=== PATIENT | male | born 1960 | race Caucasian/White ===

== ENCOUNTER 2020-08-30 23:25 | Emergency (ER) | payer OTHER ==
--- NOTE | 2020-08-31 07:33 | CT ---
PRELIMINARY REPORT/[facility]/EMERGENCY AFTER HOURS PROCEDURE: EXAM: CT Lumbar Spine Without Intravenous Contrast. CLINICAL HISTORY: PT STATES THIS AFTERNOON AROUND 1530 HE SLIPPED AND FELL. PT C/O LOW BACK PAIN AND LEFT SIDED HIP AND RIB PAIN. PT TAKES ASA AND PRASUGREL, NO OTHER THINNERS. NO LOC, NO NECK PAIN TECHNIQUE: Axial computed tomography images of the lumbar spine without intravenous contrast. Sagitta l and coronal reformations performed. COMPARISON: None provided. FINDINGS: BONES: No acute fracture or focal osseous lesion. There are bilateral pars defects at the L5 vertebr al level. Bony alignment is anatomic. DISCS/DEGENERATIVE CHANGES: No significant disc or facet degeneration. No significant central canal o r neural foraminal stenosis. SOFT TISSUES: The paraspinal soft tissues are unremarkable. IMPRESSION: No acute lumbar spine abnormality. ELECTRONICALLY SIGNED BY: Shira Pineda DO Aug 31, 2020 12:46:42 AM VIOLIN TUTOR FINAL REPORT LUMBAR SPINE CT WITHOUT CONTRAST: HISTORY: Slip and fall. Pain. COMPARISON: None. FINDINGS: No posttraumatic changes in the paraspinal muscles or visualized solid organs. Nonaneurysmal aorta. 5 lumbar-type vertebrae. Vertebral body heights are maintained. No fracture. 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 No associated spondylolysis. Minimal vacuum disc phenomenon at T12-L1. Limited evaluation the contents of the central spinal canal and neural foramina due to technique. L4-L5: Broad-based disc bulge. Mild central canal stenosis and mild bilateral neural foraminal narrow ing. L5-S1: Broad-based disc bulge. No significant mass effect upon the thecal sac. Narrowing of the theca l sac due to epidural lipomatosis. Patent bilateral neural foramina. IMPRESSION: 1. This report is in agreement with initial report by [facility] 2. No evidence of fracture. Transcribed Date/Time: 08/31/2020 8:23 AM
--- NOTE | 2020-08-31 07:37 | CT ---
PRELIMINARY REPORT/[facility]/EMERGENCY AFTER HOURS PROCEDURE: EXAM: CT Pelvis Without Intravenous Contrast. CLINICAL HISTORY: PT STATES THIS AFTERNOON AROUND 1530 HE SLIPPED AND FELL. PT C/O LOW BACK PAIN AND LEFT SIDED HIP AND RIB PAIN. PT TAKES ASA AND PRASUGREL, NO OTHER THINNERS. NO LOC, NO NECK PAIN TECHNIQUE: Axial computed tomography images of the pelvis without intravenous contrast. CONTRAST: None. COMPARISON: None provided. FINDINGS: HIP JOINTS: No dislocation. The joint spaces are normal. BONES: No acute fracture or focal osseous lesion. No suspicious focal osseous lesions. SOFT TISSUES: The pelvic viscera are unremarkable. No fluid collection, hematoma or mass. No radiopaq ue foreign body or soft tissue gas. IMPRESSION: No acute abnormality. ELECTRONICALLY SIGNED BY: Shira Pineda DO Aug 31, 2020 12:48:01 AM FERRYBOAT OPERATOR CABLE FINAL REPORT PELVIC CT WITHOUT CONTRAST: HISTORY: Fall. Pain. FINDINGS: Visualized lower abdominal and pelvic structures do not demonstrate any posttraumatic change Sacral ala are intact. Presacral fat is preserved. Intact left and right iliac wings. Intact obturato r rings. Left and right femoral head and femoral neck are unremarkable. IMPRESSION: 1. This report is in agreement with initial report by [facility]. 2. No evidence of fracture. Transcribed Date/Time: 08/31/2020 8:32 AM
--- NOTE | 2020-08-31 07:39 | CT ---
PRELIMINARY REPORT/[facility]/EMERGENCY AFTER HOURS PROCEDURE: EXAM: CT Chest Without Intravenous Contrast. CLINICAL HISTORY: PT STATES THIS AFTERNOON AROUND 1530 HE SLIPPED AND FELL. PT C/O LOW BACK PAIN AND LEFT SIDED HIP AND RIB PAIN. PT TAKES ASA AND PRASUGREL, NO OTHER THINNERS. NO LOC, NO NECK PAIN TECHNIQUE: Axial computed tomography images of the chest without intravenous contrast. COMPARISON: None provided. FINDINGS: LUNGS: No pulmonary mass. No focal airspace consolidation. PLEURAL SPACES: No pleural effusion. No pneumothorax. HEART AND MEDIASTINUM: No cardiomegaly. No significant pericardial effusion. LYMPH NODES: No lymphadenopathy. CHEST WALL AND UPPER ABDOMEN: The upper abdominal solid organs are unremarkable. The chest wall is un remarkable. BONES: No acute osseous abnormality. IMPRESSION: No acute intra-thoracic abnormality. ELECTRONICALLY SIGNED BY: Shira Pineda DO Aug 31, 2020 12:44:39 AM MACHINE STUFFER AUTOMATIC FINAL REPORT CHEST CT WITHOUT CONTRAST: HISTORY: Fall. Trauma. Pain. FINDINGS: Lower neck and axilla: No posttraumatic change. Mediastinum: Limited evaluation by the absence of IV contrast. No mass, lymphadenopathy or hematoma Heart: There are coronary artery calcifications. No evidence of cardiomegaly. Minimal pericardial flu id Upper abdomen: No posttraumatic change. Trachea and central bronchi: Patent. Lungs: No mass, consolidation or contusion. Osseous structures: No lytic or blastic lesions. Sternum, clavicles, scapula, ribs and thoracic vert ebrae do not demonstrate posttraumatic change. IMPRESSION: 1. This report is in agreement with the initial report by [facility]. 2. No posttraumatic change in the chest. Transcribed Date/Time: 08/31/2020 8:36 AM
== END 2020-08-31 01:45 | disposition home or self-care (01) ==
LOC: ERS 23:25
DX: S39.012A Strain of muscle, fascia and tendon of lower back, initial encounter (principal); I10 Essential (primary) hypertension; E11.9 Type 2 diabetes mellitus without complications; I25.10 Atherosclerotic heart disease of native coronary artery without angina pectoris; E78.5 Hyperlipidemia, unspecified; W01.0XXA Fall on same level from slipping, tripping and stumbling without subsequent striking against object, initial encounter
CPT/HCPCS: 71250; 72131; 72192